=== PATIENT | female | born 1995 ===

== ENCOUNTER 2016-11-14 14:38 | Emergency (ER) | payer SELFPAY ==
[~2016-11-14] VITALS: Ht 167.6 cm; Wt 60.0 kg
[2016-11-14 14:41] VITALS: BP 111/56; PULSE 88; RESP 18; TEMP 98.3; O2SAT 100
== END 2016-11-14 16:10 | disposition left against medical advice (07) ==
LOC: NED 14:38
DX: R10.9 Unspecified abdominal pain (principal)
CPT/HCPCS: 99281